=== PATIENT | male | born 1965 | race African-American/Black ===

== ENCOUNTER 2022-01-15 13:18 | Outpatient (CLI) | payer BC | END 2022-01-15 13:19 | disposition home or self-care (01) | LOC: SCSMRI 13:18 | PROVIDERS: ATTEND Family Medicine | DX: G44.52 New daily persistent headache (NDPH) (principal); G93.6 Cerebral edema; G93.9 Disorder of brain, unspecified; G91.1 Obstructive hydrocephalus | CPT/HCPCS: 70553 ==

== ENCOUNTER 2022-01-15 18:38 | Inpatient (IN) | payer BC ==
[~2022-01-15 18:38] MED LIST: Iopamidol-370 76% 500 ML 1 ML ONE
[2022-01-15] MEDS ORDERED: Dexamethasone 10 MG/ML VIAL ONE (19:46)
[2022-01-15 20:13] LABS: #Basophils 0.1 thou/uL (0.0-0.2); #Eosinphils 0.4 thou/uL (0.0-0.7); #Lymphocytes 2.3 thou/uL (1.20-3.40); #Monocytes 0.9 thou/uL (0.11-0.59); #Neutrophils 3.5 thou/uL (1.40-6.50); %Eosinophils 5.4 % (0.0-10.0); %Lymphocytes 31.9 % (21.0-51.0); %Monocytes 12.8 % (0.0-10.0); %Neutrophils 48.8 % (42.0-75.0); Hemoglobin 11.4 g/dL (14.0-18.0); Mean Corpuscular HGB CONC 32.6 g/dL (32.0-36.0); Mean Corpuscular Hemoglobin 30.8 pg (27.0-31.0); Mean Corpuscular Volume 94.4 fL (78.0-98.0); Mean Platelet Volume 7.2 fL (7.4-10.4); Platelet Count 322 thou/uL (130-400); RBC Distribution Width 12.9 % (11.5-14.5); Red Blood Cell (RBC) Count 3.72 mill/uL (4.70-6.10); White Blood Cell (WBC) Count 7.1 thou/uL (4.8-10.8)
[2022-01-15 20:25] LABS: INR-International Normal Ratio 1.1; PTT 32.8 sec (22.9-36.1)
[2022-01-15 20:33] LABS: ALT (SGPT) 22 U/L (8-55); AST (SGOT) 13 U/L (5-34); Albumin 4.1 g/dL (3.5-5.0); Alkaline Phosphatase 61 U/L (40-110); Anion Gap 14 mmol/L (10-20); BUN (Urea Nitrogen) 11 mg/dL (8.4-25.7); Bilirubin, Total 0.2 mg/dL (0.2-1.2); Calc. Creatinine Clearance 0 mL/min (70-130); Calcium 9.1 mg/dL (7.8-10.44); Carbon Dioxide 22 mmol/L (22-29); Chloride 109 mmol/L (98-107); Globulin 2.7 g/dL (2.4-3.5); Glucose 90 mg/dL (70-105); Potassium 3.5 mmol/L (3.5-5.1); Protein, Total 6.8 g/dL (6.0-8.3); Sodium 141 mmol/L (136-145)
[2022-01-15] MEDS ORDERED: Ondansetron PF 4 MG/2 ML Vial IVP PRN (22:49)
[2022-01-15] MEDS ORDERED: Ondansetron ODT 4 MG TAB PO PRN (22:49)
[2022-01-15] MEDS ORDERED: Acetaminophen 650 MG Suppository PR PRN (22:49)
[2022-01-16 00:44] VITALS: BMI 25.2
[2022-01-16] MEDS: Dexamethasone 4 MG TAB PO SCH ×4 (05:43→22:59)
[2022-01-16 05:56] LABS: #Lymphocytes 0.9 thou/uL (1.20-3.40); #Monocytes 0.6 thou/uL (0.11-0.59); #Neutrophils 6.5 thou/uL (1.40-6.50); %Basophils 0.1 % (0.0-1.0); %Eosinophils 0.2 % (0.0-10.0); %Lymphocytes 11.2 % (21.0-51.0); %Monocytes 7.7 % (0.0-10.0); %Neutrophils 80.9 % (42.0-75.0); Hemoglobin 11.4 g/dL (14.0-18.0); Mean Corpuscular HGB CONC 33.1 g/dL (32.0-36.0); Mean Corpuscular Hemoglobin 31.2 pg (27.0-31.0); Mean Corpuscular Volume 94.2 fL (78.0-98.0); Mean Platelet Volume 7.7 fL (7.4-10.4); Platelet Count 327 thou/uL (130-400); RBC Distribution Width 12.8 % (11.5-14.5); Red Blood Cell (RBC) Count 3.67 mill/uL (4.70-6.10)
[2022-01-16 06:26] LABS: Anion Gap 14 mmol/L (10-20); BUN (Urea Nitrogen) 12 mg/dL (8.4-25.7); Calc. Creatinine Clearance 119 mL/min (70-130); Calcium 9.1 mg/dL (7.8-10.44); Carbon Dioxide 19 mmol/L (22-29); Chloride 109 mmol/L (98-107); Glucose 151 mg/dL (70-105); Sodium 138 mmol/L (136-145)
[2022-01-16] MEDS: Pantoprazole 40 MG VIAL IVP SCH ×2 (08:22→20:35)
[2022-01-16] MEDS ORDERED: Enoxaparin Sodium 40 MG/0.4 ML SYRINGE SC SCH (09:00)
[2022-01-16] MEDS ORDERED: CEFAZOLIN 2 GM in Sodium Chloride 0.9% 100 ML IVPB SCH (12:15)
[2022-01-17] MEDS: Dexamethasone 4 MG TAB PO SCH ×4 (05:22→23:25)
[2022-01-17 05:32] LABS: #Lymphocytes 1.5 thou/uL (1.20-3.40); #Monocytes 1.3 thou/uL (0.11-0.59); #Neutrophils 12.4 thou/uL (1.40-6.50); %Basophils 0.1 % (0.0-1.0); %Eosinophils 0.1 % (0.0-10.0); %Lymphocytes 9.7 % (21.0-51.0); %Monocytes 8.5 % (0.0-10.0); %Neutrophils 81.6 % (42.0-75.0); Hemoglobin 11.5 g/dL (14.0-18.0); Mean Corpuscular HGB CONC 32.4 g/dL (32.0-36.0); Mean Corpuscular Hemoglobin 30.7 pg (27.0-31.0); Mean Corpuscular Volume 94.5 fL (78.0-98.0); Mean Platelet Volume 7.6 fL (7.4-10.4); Platelet Count 345 thou/uL (130-400); RBC Distribution Width 12.9 % (11.5-14.5); Red Blood Cell (RBC) Count 3.74 mill/uL (4.70-6.10); White Blood Cell (WBC) Count 15.2 thou/uL (4.8-10.8)
[2022-01-17 05:52] LABS: Anion Gap 13 mmol/L (10-20); BUN (Urea Nitrogen) 14 mg/dL (8.4-25.7); Calc. Creatinine Clearance 119 mL/min (70-130); Calcium 9.5 mg/dL (7.8-10.44); Carbon Dioxide 22 mmol/L (22-29); Chloride 108 mmol/L (98-107); Glucose 130 mg/dL (70-105); Sodium 139 mmol/L (136-145)
[2022-01-17] MEDS ORDERED: fentaNYL Citrate/PF 100 MCG/2 ML SYRINGE ONE ×2 (07:18→09:37)
[2022-01-17] MEDS ORDERED: Dexmedetomidine 200 MCG/2 ML VIAL ONE (07:18)
[2022-01-17] MEDS ORDERED: Phenylephrine 10 MG/ML VIAL ONE (07:19)
[2022-01-17] MEDS ORDERED: CEFAZOLIN 2 GM VIAL ONE (07:25)
[2022-01-17] MEDS ORDERED: Neomycin-Polymyxin 1 ML AMP ONE (07:26)
[2022-01-17] MEDS ORDERED: Sodium Chloride 0.9% 100 ML ONE (07:26)
[2022-01-17] MEDS ORDERED: Thrombin 5000 UNITS/5 ML VIAL ONE ×3 (07:26→12:57)
[2022-01-17] MEDS ORDERED: Bacitracin Zinc Ointment 30 gm TUBE ONE (07:28)
[2022-01-17] MEDS ORDERED: ceFAZolin 2 GM/Dextrose 50 ML 2 GM in Premix Bag 1 BAG IVPB SCH (08:00)
[2022-01-17] MEDS ORDERED: PHENYLEPHRINE-NS 100 MCG/ML 10 ML SYRINGE ONE (08:12)
[2022-01-17] MEDS ORDERED: Rocuronium Bromide 10 MG/ML (10ML VIAL) ONE (08:12)
[2022-01-17] MEDS ORDERED: PROPOFOL 200 MG/20 ML VIAL ONE (08:12)
[2022-01-17] MEDS ORDERED: Lidocaine 1% PF 5 ML VIAL ONE (08:12)
[2022-01-17] MEDS ORDERED: Dexamethasone 20 MG/5 ML VIAL ONE (08:12)
[2022-01-17] MEDS ORDERED: Vecuronium 10 MG VIAL ONE ×2 (08:12→16:26)
[2022-01-17] MEDS ORDERED: Lidocaine 0.5%/Epinephrine 1:200,000 50 ml Vial ONE (08:28)
[2022-01-17] MEDS ORDERED: PROPOFOL 20 ML ONE (09:33)
[2022-01-17] MEDS ORDERED: Rocuronium Bromide 50 MG/5 ML VIAL ONE ×2 (10:56→12:34)
[2022-01-17] MEDS ORDERED: HYDROmorphone 2 MG/ML VIAL ONE (16:34)
[2022-01-17] MEDS ORDERED: HYDROcodone/Acetaminophen 10/325 mg Tablet PO PRN (17:20)
[2022-01-17] MEDS ORDERED: HYDROcodone/Acetaminophen 7.5/325 mg Tablet PO PRN (17:20)
[2022-01-17] MEDS ORDERED: Mag-Al 1200 mg/1200 mg/30 ML UDCUP PO PRN (17:21)
[2022-01-17] MEDS ORDERED: Docusate 100 MG CAP PO PRN (17:21)
[2022-01-17] MEDS ORDERED: Morphine 2 MG/ML VIAL SLOW IVP PRN ×2 (17:21→17:45)
[2022-01-17 17:32] LABS: Actual Bicarbonate (HCO3a) 22.6 mEq/L (22-28); Base Excess (BEa) -2.4 mEq/L (-2.0 to +3.0); CO2 Tension 39.5 mmHg (35.0-45.0); Carboxyhemoglobin (COHb) 0.3 gm% (0.0-3.0); Hemoglobin (Hb) 11.6 g/dL (14.0-18.0); O2 Tension (PaO2), arterial 230.3 mmHg (80.0-100.0); Potassium - ABG Lab 4.38 mmol/L (3.70-5.30); pH, Arterial 7.38 (7.35-7.45)
[2022-01-17] MEDS ORDERED: Propofol 1,000 MG/100 ML VIAL IV ONE (17:35)
[2022-01-17 17:37] LABS: ALV-art Gradient 148.125 mmHg (0-20); Puncture Site Arterial Line
[2022-01-17] MEDS ORDERED: Lorazepam 2 MG/ML VIAL SLOW IVP PRN (17:45)
[2022-01-17] MEDS ORDERED: DISCONTINUE PREVIOUS NARCOTIC PAIN MEDICATIONS AND BENZODIAZEPINES FS SCH (17:45)
[2022-01-17] MEDS ORDERED: Propofol BOLUS 1,000 MG/100 ML VIAL IV PRN (17:45)
[2022-01-17] MEDS ORDERED: Fentanyl BOLUS 250 ML IVPB PRN (17:45)
[2022-01-17] MEDS ORDERED: Insulin Regular 300 UNITS/3 ML VIAL SC PRN (17:58)
[2022-01-17] MEDS: fentaNYL Citrate-0.9 % NaCl/PF 100 ML IVPB SCH (18:04)
[2022-01-17] MEDS: Sodium Chloride 0.9% 1,000 ML IV SCH (18:21)
[2022-01-17] MEDS: Pantoprazole 40 MG VIAL IVP SCH ×2 (18:23→21:16)
[2022-01-17] MEDS: Labetalol HCl 100 MG/20 ML VIAL SLOW IVP PRN (19:51)
[2022-01-17] MEDS: CEFAZOLIN 2 GM in Sodium Chloride 0.9% 100 ML IVPB SCH (21:12)
[2022-01-17] MEDS: Ondansetron PF 4 MG/2 ML Vial IVP SCH (21:16)
[2022-01-17] MEDS: Propofol 1,000 MG/100 ML VIAL IV PRN (22:35)
[2022-01-18] MEDS: Ondansetron PF 4 MG/2 ML Vial IVP SCH ×7 (01:24→23:53)
[2022-01-18] MEDS: fentaNYL Citrate-0.9 % NaCl/PF 100 ML IVPB SCH (02:10)
[2022-01-18] MEDS: Propofol 1,000 MG/100 ML VIAL IV PRN ×2 (02:11→05:21)
[2022-01-18 03:44] LABS: #Lymphocytes 2.6 thou/uL (1.20-3.40); #Monocytes 2.2 thou/uL (0.11-0.59); #Neutrophils 12.9 thou/uL (1.40-6.50); %Eosinophils 0.1 % (0.0-10.0); %Lymphocytes 14.6 % (21.0-51.0); %Monocytes 12.4 % (0.0-10.0); %Neutrophils 72.8 % (42.0-75.0); Hemoglobin 10.9 g/dL (14.0-18.0); Mean Corpuscular HGB CONC 32.3 g/dL (32.0-36.0); Mean Corpuscular Hemoglobin 30.9 pg (27.0-31.0); Mean Corpuscular Volume 95.6 fL (78.0-98.0); Platelet Count 336 thou/uL (130-400); RBC Distribution Width 13.3 % (11.5-14.5); Red Blood Cell (RBC) Count 3.52 mill/uL (4.70-6.10); White Blood Cell (WBC) Count 17.7 thou/uL (4.8-10.8)
[2022-01-18 03:58] LABS: Anion Gap 13 mmol/L (10-20); BUN (Urea Nitrogen) 13 mg/dL (8.4-25.7); Calc. Creatinine Clearance 126 mL/min (70-130); Calcium 8.3 mg/dL (7.8-10.44); Carbon Dioxide 24 mmol/L (22-29); Chloride 106 mmol/L (98-107); Glucose 130 mg/dL (70-105); Potassium 3.9 mmol/L (3.5-5.1); Sodium 139 mmol/L (136-145)
[2022-01-18] MEDS: Labetalol HCl 100 MG/20 ML VIAL SLOW IVP PRN ×8 (05:05→22:39)
[2022-01-18] MEDS: CEFAZOLIN 2 GM in Sodium Chloride 0.9% 100 ML IVPB SCH ×3 (05:14→19:50)
[2022-01-18] MEDS: Dexamethasone 4 MG TAB PO SCH ×4 (05:16→23:48)
[2022-01-18] MEDS: niCARdipine 25 MG in Sodium Chloride 0.9% 250 ML 250 ML IVPB SCH ×8 (06:15→23:21)
[2022-01-18] MEDS: Sodium Chloride 0.9% 1,000 ML IV SCH ×2 (06:35→19:44)
[2022-01-18 07:18] LABS: Actual Bicarbonate (HCO3a) 21.3 mEq/L (22-28); Base Excess (BEa) -3.1 mEq/L (-2.0 to +3.0); CO2 Tension 35.6 mmHg (35.0-45.0); Calcium, Ionized (arterial) 1.12 mmol/L (1.12-1.30); Carboxyhemoglobin (COHb) 0.1 gm% (0.0-3.0); Hemoglobin (Hb) 10.8 g/dL (14.0-18.0); O2 Tension (PaO2), arterial 109.6 mmHg (80.0-100.0); Potassium - ABG Lab 3.68 mmol/L (3.70-5.30); pH, Arterial 7.39 (7.35-7.45)
[2022-01-18 07:26] LABS: Puncture Site Arterial Line
[2022-01-18] MEDS: Pantoprazole 40 MG VIAL IVP SCH ×2 (09:34→19:52)
[2022-01-18] MEDS: hydrALAZINE 20 MG/ML VIAL SLOW IVP PRN ×3 (12:32→21:10)
[2022-01-18] MEDS: Acetaminophen 325 MG TAB PO PRN (16:25)
[2022-01-18] MEDS: Amlodipine 5 MG TAB PO SCH (20:19)
[2022-01-18] MEDS: Morphine 2 MG/ML VIAL SLOW IVP PRN (23:48)
[2022-01-19] MEDS: niCARdipine 50 MG in Sodium Chloride 0.9% 250 ML 230 ML IV SCH ×5 (01:49→21:56)
[2022-01-19 04:08] LABS: Hemoglobin 10.1 g/dL (14.0-18.0); Lymphocytes 9 % (21-51); MDiff Complete? YES; Mean Corpuscular HGB CONC 32.9 g/dL (32.0-36.0); Mean Corpuscular Hemoglobin 31.7 pg (27.0-31.0); Mean Corpuscular Volume 96.3 fL (78.0-98.0); Mean Platelet Volume 7.3 fL (7.4-10.4); Monocytes 11 % (0-10); Neutrophil 80 % (42-75); Platelet Count 318 thou/uL (130-400); Platelet Morphology Comment Appears Adequate; RBC Distribution Width 13.4 % (11.5-14.5); RBC Morphology Normal; White Blood Cell (WBC) Count 17.2 thou/uL (4.8-10.8)
[2022-01-19] MEDS: Ondansetron PF 4 MG/2 ML Vial IVP SCH ×5 (04:14→20:13)
[2022-01-19] MEDS: CEFAZOLIN 2 GM in Sodium Chloride 0.9% 100 ML IVPB SCH ×3 (04:14→20:13)
[2022-01-19] MEDS: Morphine 2 MG/ML VIAL SLOW IVP PRN ×3 (04:14→21:23)
[2022-01-19] MEDS: Labetalol HCl 100 MG/20 ML VIAL SLOW IVP PRN ×3 (04:46→17:20)
[2022-01-19] MEDS: hydrALAZINE 20 MG/ML VIAL SLOW IVP PRN (05:50)
[2022-01-19] MEDS: Dexamethasone 4 MG TAB PO SCH ×2 (06:14→10:37)
[2022-01-19] MEDS: Amlodipine 5 MG TAB PO SCH ×2 (08:33→20:16)
[2022-01-19] MEDS: Pantoprazole 40 MG VIAL IVP SCH ×2 (08:33→20:13)
[2022-01-19] MEDS: Sodium Chloride 0.9% 1,000 ML IV SCH ×2 (09:11→21:56)
[2022-01-19] MEDS: Metoclopramide HCl 10 MG/2 ML VIAL IVP PRN (11:23)
[2022-01-19] MEDS: Dexamethasone 4 mg/ml Vial SLOW IVP SCH ×2 (11:24→17:20)
[2022-01-20] MEDS: Ondansetron PF 4 MG/2 ML Vial IVP SCH ×7 (00:23→23:53)
[2022-01-20] MEDS: Dexamethasone 4 mg/ml Vial SLOW IVP SCH ×5 (04:32→23:53)
[2022-01-20] MEDS: CEFAZOLIN 2 GM in Sodium Chloride 0.9% 100 ML IVPB SCH ×3 (04:33→19:38)
[2022-01-20] MEDS: Labetalol HCl 100 MG/20 ML VIAL SLOW IVP PRN (05:39)
[2022-01-20] MEDS: niCARdipine 50 MG in Sodium Chloride 0.9% 250 ML 230 ML IV SCH ×4 (05:40→22:57)
[2022-01-20] MEDS: Labetalol HCl 100 MG TAB PO SCH ×2 (07:49→19:39)
[2022-01-20] MEDS: Amlodipine 10 MG TAB PO SCH (07:49)
[2022-01-20] MEDS: Pantoprazole 40 MG VIAL IVP SCH ×2 (07:50→19:39)
[2022-01-20] MEDS: Morphine 2 MG/ML VIAL SLOW IVP PRN ×3 (08:47→19:39)
[2022-01-20] MEDS: Metoclopramide HCl 10 MG/2 ML VIAL IVP PRN (08:47)
[2022-01-20] MEDS: Sodium Chloride 0.9% 1,000 ML IV SCH ×2 (11:08→19:41)
[2022-01-20] MEDS: hydrALAZINE 20 MG/ML VIAL SLOW IVP PRN (12:14)
[2022-01-21] MEDS: Acetaminophen 325 MG TAB PO PRN ×2 (05:04→09:16)
[2022-01-21] MEDS: Dexamethasone 4 mg/ml Vial SLOW IVP SCH ×3 (05:04→17:32)
[2022-01-21] MEDS: CEFAZOLIN 2 GM in Sodium Chloride 0.9% 100 ML IVPB SCH ×3 (05:04→20:09)
[2022-01-21] MEDS: Ondansetron PF 4 MG/2 ML Vial IVP SCH ×5 (05:04→21:00)
[2022-01-21] MEDS: Labetalol HCl 100 MG TAB PO SCH ×2 (09:08→20:09)
[2022-01-21] MEDS: Amlodipine 10 MG TAB PO SCH (09:08)
[2022-01-21] MEDS: Pantoprazole 40 MG VIAL IVP SCH ×2 (09:10→20:09)
[2022-01-21] MEDS: Morphine 2 MG/ML VIAL SLOW IVP PRN ×2 (12:17→20:09)
[2022-01-21] MEDS: Sodium Chloride 0.9% 1,000 ML IV SCH (15:27)
[2022-01-22] MEDS: Dexamethasone 4 mg/ml Vial SLOW IVP SCH ×4 (00:07→17:02)
[2022-01-22] MEDS: Ondansetron PF 4 MG/2 ML Vial IVP SCH ×6 (00:08→17:02)
[2022-01-22] MEDS: CEFAZOLIN 2 GM in Sodium Chloride 0.9% 100 ML IVPB SCH ×2 (04:59→12:00)
[2022-01-22] MEDS: Acetaminophen 325 MG TAB PO PRN ×3 (05:04→22:56)
[2022-01-22 05:21] LABS: #Lymphocytes 0.9 thou/uL (1.20-3.40); #Monocytes 1.3 thou/uL (0.11-0.59); #Neutrophils 12.3 thou/uL (1.40-6.50); %Basophils 0.2 % (0.0-1.0); %Eosinophils 0.1 % (0.0-10.0); %Lymphocytes 6.3 % (21.0-51.0); %Monocytes 8.6 % (0.0-10.0); %Neutrophils 84.7 % (42.0-75.0); Mean Corpuscular HGB CONC 32.7 g/dL (32.0-36.0); Mean Corpuscular Hemoglobin 31.4 pg (27.0-31.0); Mean Platelet Volume 7.3 fL (7.4-10.4); Platelet Count 306 thou/uL (130-400); RBC Distribution Width 13.1 % (11.5-14.5); Red Blood Cell (RBC) Count 2.56 mill/uL (4.70-6.10); White Blood Cell (WBC) Count 14.6 thou/uL (4.8-10.8)
[2022-01-22 05:39] LABS: Anion Gap 12 mmol/L (10-20); BUN (Urea Nitrogen) 16 mg/dL (8.4-25.7); Calc. Creatinine Clearance 136 mL/min (70-130); Calcium 8.8 mg/dL (7.8-10.44); Carbon Dioxide 27 mmol/L (22-29); Chloride 105 mmol/L (98-107); Estimated GFR 111; Glucose 137 mg/dL (70-105); Potassium 3.6 mmol/L (3.5-5.1); Sodium 140 mmol/L (136-145)
[2022-01-22] MEDS: Sodium Chloride 0.9% 1,000 ML IV SCH ×3 (06:25→17:28)
[2022-01-22] MEDS: Morphine 2 MG/ML VIAL SLOW IVP PRN ×2 (08:19→20:41)
[2022-01-22] MEDS: Pantoprazole 40 MG VIAL IVP SCH ×2 (08:21→20:39)
[2022-01-22] MEDS ORDERED: Vancomycin HCl 20 MG, Gentamicin (PEDI) 8 MG in Sodium Chloride 0.9% 4 ML IVPB SCH (08:45)
[2022-01-22] MEDS ORDERED: chlorproMAZINE HCl 50 MG/2 ML AMP IM PRN (09:31)
[2022-01-22] MEDS ORDERED: Thrombin 5000 UNITS/5 ML VIAL ONE (10:20)
[2022-01-22] MEDS ORDERED: Neomycin-Polymyxin 1 ML AMP ONE (10:20)
[2022-01-22] MEDS ORDERED: Lidocaine 0.5%/Epinephrine 1:200,000 50 ml Vial ONE (10:20)
[2022-01-22] MEDS: Amlodipine 10 MG TAB PO SCH (10:40)
[2022-01-22] MEDS: Labetalol HCl 100 MG TAB PO SCH ×2 (10:41→20:39)
[2022-01-22] MEDS ORDERED: Dexamethasone 20 MG/5 ML VIAL ONE (11:47)
[2022-01-22] MEDS ORDERED: Rocuronium Bromide 10 MG/ML (10ML VIAL) ONE (11:47)
[2022-01-22] MEDS ORDERED: PROPOFOL 200 MG/20 ML VIAL ONE (11:47)
[2022-01-22] MEDS ORDERED: Lidocaine 1% PF 5 ML VIAL ONE (11:47)
[2022-01-22] MEDS ORDERED: Ondansetron PF 4 MG/2 ML Vial ONE (11:47)
[2022-01-22] MEDS ORDERED: Glycopyrrolate 0.2 MG/ML 5 ML SYRINGE ONE (11:47)
[2022-01-22] MEDS ORDERED: fentaNYL Citrate/PF 100 MCG/2 ML SYRINGE ONE (11:50)
[2022-01-22] MEDS ORDERED: PROPOFOL 20 ML ONE (13:47)
[2022-01-22] MEDS ORDERED: Promethazine HCl 25 MG/ML VIAL IVPB PRN (14:14)
[2022-01-22] MEDS ORDERED: Ondansetron HCl/PF 4 MG/2 ML Vial IVP PRN (14:14)
[2022-01-22] MEDS ORDERED: Promethazine HCl 25 MG/ML VIAL IM PRN (14:14)
[2022-01-22] MEDS ORDERED: Fentanyl 100 MCG/2 ML VIAL ONE (14:48)
[2022-01-22 14:51] LABS: Hemoglobin 8.9 g/dL (14.0-18.0)
[2022-01-22] MEDS: Labetalol HCl 100 MG/20 ML VIAL SLOW IVP PRN (15:17)
[2022-01-22] MEDS: Vancomycin 1 GM in Premix Bag 1 BAG IVPB SCH (20:45)
[2022-01-22] MEDS ORDERED: VANCOMYCIN 1.25 GM/250 ML BAG IVPB SCH (21:00)
[2022-01-23] MEDS: Dexamethasone 4 mg/ml Vial SLOW IVP SCH ×4 (00:34→17:02)
[2022-01-23] MEDS: Ondansetron PF 4 MG/2 ML Vial IVP SCH ×6 (00:34→20:54)
[2022-01-23] MEDS: Acetaminophen 325 MG TAB PO PRN ×4 (04:10→17:02)
[2022-01-23] MEDS: Sodium Chloride 0.9% 1,000 ML IV SCH (06:35)
[2022-01-23] MEDS: Amlodipine 10 MG TAB PO SCH (08:29)
[2022-01-23] MEDS: Labetalol HCl 100 MG TAB PO SCH ×2 (08:30→20:55)
[2022-01-23] MEDS: Vancomycin 1 GM in Premix Bag 1 BAG IVPB SCH (08:31)
[2022-01-23] MEDS: Pantoprazole 40 MG VIAL IVP SCH ×2 (08:31→20:55)
[2022-01-23] MEDS: hydrALAZINE 20 MG/ML VIAL SLOW IVP PRN ×3 (11:32→17:36)
[2022-01-23] MEDS: Morphine 2 MG/ML VIAL SLOW IVP PRN ×2 (11:32→21:03)
[2022-01-24] MEDS: Dexamethasone 4 mg/ml Vial SLOW IVP SCH ×3 (01:17→13:49)
[2022-01-24] MEDS: Ondansetron PF 4 MG/2 ML Vial IVP SCH ×4 (01:17→13:49)
[2022-01-24] MEDS: Labetalol HCl 100 MG TAB PO SCH (08:23)
[2022-01-24] MEDS: Amlodipine 10 MG TAB PO SCH (08:24)
[2022-01-24] MEDS: Acetaminophen 325 MG TAB PO PRN (08:24)
[2022-01-24] MEDS: Pantoprazole 40 MG VIAL IVP SCH (08:24)
[2022-01-24 16:58] VITALS: BP 119/73; TEMP 97.9
== END 2022-01-24 17:37 | disposition home or self-care (01) | DRG 25 ==
LOC: ERS 18:38 → NEURO 22:25 → SURG A 01-17 07:29 → CCU 01-17 16:53 → OBSVTOIN 01-18 09:34 → SURG A 01-23 11:04
PROVIDERS: ADMIT Student in an Organized Health Care Education/Training Program; ATTEND Internal Medicine
PROC: 00B70ZZ Excision of Cerebral Hemisphere, Open Approach (ICD-10-PCS; principal; 2022-01-17)
PROC: 00960ZZ Drainage of Cerebral Ventricle, Open Approach (ICD-10-PCS; 2022-01-17)
PROC: 00U20KZ Supplement Dura Mater with Nonautologous Tissue Substitute, Open Approach (ICD-10-PCS; 2022-01-17)
PROC: 00160J6 Bypass Cerebral Ventricle to Peritoneal Cavity with Synthetic Substitute, Open Approach (ICD-10-PCS; 2022-01-22)
PROC: 0WP Anatomical Regions, General, Removal (ICD-10-PCS; 2022-01-22)
DX: D33.1 Benign neoplasm of brain, infratentorial (principal); G93.6 Cerebral edema; J96.00 Acute respiratory failure, unspecified whether with hypoxia or hypercapnia; G91.1 Obstructive hydrocephalus; Z20.822 Contact with and (suspected) exposure to COVID-19; R91.1 Solitary pulmonary nodule; D64.9 Anemia, unspecified; F41.9 Anxiety disorder, unspecified; K21.9 Gastro-esophageal reflux disease without esophagitis; F32.A Depression, unspecified; D72.829 Elevated white blood cell count, unspecified; T38.0X5A Adverse effect of glucocorticoids and synthetic analogues, initial encounter; Z87.891 Personal history of nicotine dependence; Z79.899 Other long term (current) drug therapy; G44.52 New daily persistent headache (NDPH)
CPT/HCPCS: 36415; 70553; 71045; 71275; 74177; 80048; 80053; 82805; 85025; 85610; 85730; 86850; 86900; 86901; 88307; 88331; 93005; 94002; 94003; 96372; 96374; 96375; 96376; C1713; C1729; C1750; C1776; C1788; C9113; G0378; J0360; J0690; J1100; J1170; J1650; J2001; J2270; J2370; J2405; J2704; J2765; J3010; J3370; J3490; J7050; J8540; Q4107; U0003; U0005

== ENCOUNTER 2022-03-22 11:15 | Inpatient (IN) | payer BC ==
[2022-03-26] MEDS ORDERED: fentaNYL Citrate/PF 100 MCG/2 ML SYRINGE ONE ×3 (06:09→10:53)
[2022-03-26] MEDS ORDERED: Albumin 25% 100 ML ONE (06:10)
[2022-03-26] MEDS ORDERED: Propofol 1,000 MG/100 ML VIAL IV ONE (06:10)
[2022-03-26] MEDS ORDERED: levETIRAcetam 500 MG/5 ML VIAL ONE (06:10)
[2022-03-26] MEDS ORDERED: Thrombin 5000 UNITS/5 ML VIAL ONE (06:13)
[2022-03-26] MEDS ORDERED: EPINEPHrine 1 MG/ML AMP ONE (06:13)
[2022-03-26] MEDS ORDERED: Lidocaine 1% PF 5 ML VIAL ONE ×2 (06:13→13:26)
[2022-03-26] MEDS ORDERED: Bacitracin Zinc Ointment 30 gm TUBE ONE (06:13)
[2022-03-26] MEDS ORDERED: Neomycin-Polymyxin 1 ML AMP ONE (06:13)
[2022-03-26] MEDS ORDERED: Lidocaine 0.5%/Epinephrine 1:200,000 50 ml Vial ONE (06:33)
[2022-03-26] MEDS ORDERED: Lidocaine 1% MPF 2 ML VIAL ONE ×3 (06:47→07:12)
[2022-03-26] MEDS ORDERED: Sodium Chloride 0.9% 100 ML ONE (06:54)
[2022-03-26] MEDS ORDERED: CEFAZOLIN 2 GM VIAL ONE (06:54)
[2022-03-26] MEDS ORDERED: Midazolam HCl 2 mg/2 ml Vial ONE (06:56)
[2022-03-26] MEDS ORDERED: Mag-Al 1200 mg/1200 mg/30 ML UDCUP PO PRN (07:07)
[2022-03-26] MEDS ORDERED: HYDROcodone/Acetaminophen 10/325 mg Tablet PO PRN (07:07)
[2022-03-26] MEDS ORDERED: Docusate 100 MG CAP PO PRN (07:07)
[2022-03-26] MEDS ORDERED: diphenhydrAMINE 50 MG/ML VIAL IVP PRN (07:07)
[2022-03-26] MEDS ORDERED: HYDROcodone/Acetaminophen 7.5/325 mg Tablet PO PRN (07:07)
[2022-03-26] MEDS ORDERED: Metoprolol Tartrate 5 MG/5 ML VIAL ONE ×3 (07:12→11:50)
[2022-03-26] MEDS ORDERED: Rocuronium Bromide 10 MG/ML (10ML VIAL) ONE ×2 (07:12)
[2022-03-26] MEDS ORDERED: PROPOFOL 200 MG/20 ML VIAL ONE (07:12)
[2022-03-26] MEDS ORDERED: Vecuronium 10 MG VIAL ONE (07:12)
[2022-03-26] MEDS ORDERED: Esmolol 100 MG/10 ML VIAL ONE ×3 (07:12→09:52)
[2022-03-26] MEDS ORDERED: Dexamethasone 20 MG/5 ML VIAL ONE (07:12)
[2022-03-26] MEDS ORDERED: Ondansetron PF 4 MG/2 ML Vial ONE (07:12)
[2022-03-26] MEDS ORDERED: Rocuronium Bromide 50 MG/5 ML VIAL ONE (09:32)
[2022-03-26] MEDS ORDERED: SUGAMMADEX SODIUM 200 MG/2 ML VIAL ONE (13:22)
[2022-03-26] MEDS ORDERED: Fentanyl 100 MCG/2 ML VIAL ONE (14:17)
[2022-03-26] MEDS: Pantoprazole 40 MG VIAL IVP SCH ×2 (15:32→20:23)
[2022-03-26] MEDS: Ondansetron PF 4 MG/2 ML Vial IVP SCH ×3 (15:32→20:25)
[2022-03-26] MEDS: CEFAZOLIN 2 GM in Sodium Chloride 0.9% 100 ML IVPB SCH ×3 (15:39→22:27)
[2022-03-26] MEDS: Morphine 2 MG/ML VIAL SLOW IVP PRN ×4 (15:51→21:13)
[2022-03-26] MEDS: Labetalol HCl 100 MG/20 ML VIAL SLOW IVP PRN ×4 (16:24→21:21)
[2022-03-26] MEDS: hydrALAZINE 20 MG/ML VIAL SLOW IVP PRN ×2 (16:54→17:17)
[2022-03-26] MEDS: traMADol HCl 50 MG TAB PO PRN (17:11)
[2022-03-26] MEDS: Acetaminophen 325 MG TAB PO PRN (17:11)
[2022-03-26] MEDS: niCARdipine 25 MG in Sodium Chloride 0.9% 250 ML 250 ML IVPB SCH ×2 (17:50→19:36)
[2022-03-26] MEDS: HYDROcodone/Acetaminophen 10/325 mg Tablet PO PRN ×2 (19:15→23:16)
[2022-03-26] MEDS: Cyclobenzaprine 10 MG TAB PO PRN (19:17)
[2022-03-26] MEDS: Sodium Chloride 0.9% 1,000 ML IV SCH ×2 (19:33→19:37)
[2022-03-26] MEDS: niCARdipine 50 MG, Admixture Fee 1 EACH in Sodium Chloride 0.9% 250 ML 230 ML IVPB SCH (21:41)
[2022-03-27] MEDS: traMADol HCl 50 MG TAB PO PRN (01:05)
[2022-03-27] MEDS: Ondansetron PF 4 MG/2 ML Vial IVP SCH ×4 (01:06→18:59)
[2022-03-27] MEDS: niCARdipine 50 MG, Admixture Fee 1 EACH in Sodium Chloride 0.9% 250 ML 230 ML IVPB SCH (01:06)
[2022-03-27] MEDS: Morphine 2 MG/ML VIAL SLOW IVP PRN ×3 (01:24→22:56)
[2022-03-27] MEDS: HYDROcodone/Acetaminophen 10/325 mg Tablet PO PRN ×4 (05:25→16:19)
[2022-03-27 07:36] LABS: Anion Gap 17 mmol/L (10-20); BUN (Urea Nitrogen) 5 mg/dL (8.4-25.7); Calc. Creatinine Clearance 128 mL/min (70-130); Calcium 8.9 mg/dL (7.8-10.44); Carbon Dioxide 22 mmol/L (22-29); Chloride 105 mmol/L (98-107); Estimated GFR 109; Glucose 126 mg/dL (70-105); Potassium 3.6 mmol/L (3.5-5.1); Sodium 140 mmol/L (136-145)
[2022-03-27] MEDS: Pantoprazole 40 MG VIAL IVP SCH ×2 (07:46→20:43)
[2022-03-27 07:52] LABS: #Lymphocytes 1.9 thou/uL (1.20-3.40); #Monocytes 1.5 thou/uL (0.11-0.59); #Neutrophils 7.8 thou/uL (1.40-6.50); %Basophils 0.4 % (0.0-1.0); %Eosinophils 0.4 % (0.0-10.0); %Lymphocytes 16.7 % (21.0-51.0); %Monocytes 13.5 % (0.0-10.0); Hemoglobin 10.4 g/dL (14.0-18.0); Mean Corpuscular HGB CONC 31.8 g/dL (32.0-36.0); Mean Corpuscular Hemoglobin 27.8 pg (27.0-31.0); Mean Corpuscular Volume 87.2 fL (78.0-98.0); Mean Platelet Volume 8.5 fL (7.4-10.4); Platelet Count 304 thou/uL (130-400); RBC Distribution Width 16.3 % (11.5-14.5); Red Blood Cell (RBC) Count 3.75 mill/uL (4.70-6.10); White Blood Cell (WBC) Count 11.2 thou/uL (4.8-10.8)
[2022-03-27] MEDS: Sodium Chloride 0.9% 1,000 ML IV SCH (09:18)
[2022-03-27] MEDS: Promethazine HCl 25 MG/ML VIAL IM PRN (20:55)
[2022-03-27] MEDS: hydrALAZINE 20 MG/ML VIAL SLOW IVP PRN ×3 (21:58→23:41)
[2022-03-28] MEDS: HYDROcodone/Acetaminophen 10/325 mg Tablet PO PRN (00:40)
[2022-03-28] MEDS: Ondansetron PF 4 MG/2 ML Vial IVP SCH ×4 (01:22→18:25)
[2022-03-28] MEDS: Sodium Chloride 0.9% 1,000 ML IV SCH ×2 (01:42→11:52)
[2022-03-28] MEDS: Labetalol HCl 100 MG/20 ML VIAL SLOW IVP PRN ×3 (02:13→04:06)
[2022-03-28] MEDS: Cyclobenzaprine 10 MG TAB PO PRN ×2 (02:13→21:00)
[2022-03-28] MEDS: traMADol HCl 50 MG TAB PO PRN (03:31)
[2022-03-28] MEDS: Acetaminophen 325 MG TAB PO PRN (03:31)
[2022-03-28] MEDS: HYDROcodone/Acetaminophen 7.5/325 mg Tablet PO PRN ×2 (11:48→18:25)
[2022-03-28] MEDS: Pantoprazole 40 MG VIAL IVP SCH ×2 (11:48→21:01)
[2022-03-28] MEDS: hydrALAZINE 20 MG/ML VIAL SLOW IVP PRN (20:59)
[2022-03-28] MEDS: Promethazine HCl 25 MG/ML VIAL IM PRN (21:00)
[2022-03-29] MEDS: Ondansetron PF 4 MG/2 ML Vial IVP SCH ×3 (00:57→11:53)
[2022-03-29] MEDS: HYDROcodone/Acetaminophen 7.5/325 mg Tablet PO PRN ×2 (01:00→12:06)
[2022-03-29] MEDS: hydrALAZINE 20 MG/ML VIAL SLOW IVP PRN ×2 (05:49→10:13)
[2022-03-29] MEDS: Cyclobenzaprine 10 MG TAB PO PRN (05:49)
[2022-03-29] MEDS: Sodium Chloride 0.9% 1,000 ML IV SCH (05:50)
[2022-03-29 06:51] VITALS: BMI 22.8
[2022-03-29] MEDS: Pantoprazole 40 MG VIAL IVP SCH (10:02)
[2022-03-29 11:47] VITALS: BP 132/71; TEMP 98
== END 2022-03-29 12:50 | disposition home or self-care (01) | DRG 27 ==
LOC: SURG A 03-26 05:35 → CCU 03-26 15:00 → SJJU 03-27 08:42
PROVIDERS: ADMIT Neurological Surgery; ATTEND Neurological Surgery
PROC: 00BC0ZZ Excision of Cerebellum, Open Approach (ICD-10-PCS; principal; 2022-03-26)
DX: D32.0 Benign neoplasm of cerebral meninges (principal); Z20.822 Contact with and (suspected) exposure to COVID-19; D49.6 Neoplasm of unspecified behavior of brain; G93.89 Other specified disorders of brain; G43.909 Migraine, unspecified, not intractable, without status migrainosus; F41.9 Anxiety disorder, unspecified; Z60.2 Problems related to living alone; K21.9 Gastro-esophageal reflux disease without esophagitis; Z87.891 Personal history of nicotine dependence; Z80.0 Family history of malignant neoplasm of digestive organs; Z79.899 Other long term (current) drug therapy; R27.8 Other lack of coordination
CPT/HCPCS: 36415; 80048; 85025; 85027; 85610; 85730; 87811; 88307; 88331; 88334; C1776; C1788; C9113; J0171; J0360; J0690; J1100; J1953; J2001; J2250; J2270; J2405; J2550; J2704; J3010; J3370; J3490; J7050; P9047

== ENCOUNTER 2022-03-25 11:00 | Outpatient (CLI) | payer BC ==
[2022-03-25 11:53] LABS: Hemoglobin 11.7 g/dL (13.5-17.5); Mean Corpuscular HGB CONC 31.1 g/dL (32.0-36.0); Mean Corpuscular Hemoglobin 26.3 pg (27.0-33.0); Mean Corpuscular Volume 84.5 fl (81.2-95.1); Mean Platelet Volume 9.6 fl (7.4-10.4); Platelet Count 382 10x3/uL (150-450); RBC Distribution Width 16.6 % (11.5-14.5); Red Blood Cell (RBC) Count 4.45 10x6/uL (4.32-5.72); White Blood Cell (WBC) Count 7.2 10x3/uL (3.5-10.5)
[2022-03-25 12:14] LABS: PTT 28.5 sec (22.0-33.0); Prothrombin Time 11.1 sec (9.5-12.1)
== END 2022-03-25 11:01 | disposition home or self-care (01) ==
LOC: LABBT 11:00
PROVIDERS: ATTEND Neurological Surgery
DX: Z01.812 Encounter for preprocedural laboratory examination (principal); D32.0 Benign neoplasm of cerebral meninges
CPT/HCPCS: 85027; 85610; 85730; 87811

== ENCOUNTER 2024-04-17 10:04 | Outpatient (CLI) | payer OTHER ==
[2024-04-17] MEDS ORDERED: Iopamidol 370 76% 100 ML VIAL ONE (10:42)
== END 2024-04-17 10:05 | disposition home or self-care (01) ==
LOC: CT 10:04
PROVIDERS: ATTEND Urology
DX: R31.0 Gross hematuria (principal); K57.30 Diverticulosis of large intestine without perforation or abscess without bleeding; R91.1 Solitary pulmonary nodule; R93.5 Abnormal findings on diagnostic imaging of other abdominal regions, including retroperitoneum
CPT/HCPCS: 74178

== ENCOUNTER 2025-05-08 08:40 | Outpatient (CLI) | payer OTHER | END 2025-05-08 08:41 | disposition home or self-care (01) | LOC: RAD 08:40 | PROVIDERS: ATTEND Internal Medicine Critical Care Medicine | DX: R06.00 Dyspnea, unspecified (principal) | CPT/HCPCS: 71046 ==